=== PATIENT | male | born 1970 | race Caucasian/White ===

== ENCOUNTER 2016-11-26 18:18 | Emergency (ER) | payer OTHER ==
[~2016-11-26] VITALS: Ht 165.1 cm; Wt 63.6 kg
[2016-11-26 18:34] VITALS: Ht 165.1 cm; Wt 63.6 kg
[2016-11-26] MEDS ORDERED: DIPHTH/TET/ACEL PERTUSS (ADULT) 0.5 ML VIAL IM* ONE (19:00)
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
[2016-11-26] MEDS ORDERED: LIDOCAINE 1% (MDV) 20 ML INJ SC ONE (19:30)
[2016-11-26] MEDS ORDERED: LIDOCAINE 1%/EPI 30 ML INJ INJ STA (19:46)
[2016-11-26] MEDS ORDERED: LIDOCAINE 2%/EPI MPF (SDV) 20 ML VIAL INJ STA (19:49)
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
[2016-11-26 20:22] VITALS: BP 150/95; PULSE 115; RESP 26; TEMP 99.4
== END 2016-11-26 20:25 ==
LOC: E/R 18:18
DX: S01.81XA Laceration without foreign body of other part of head, initial encounter (principal); R40.2252 Coma scale, best verbal response, oriented, at arrival to emergency department; S01.01XA Laceration without foreign body of scalp, initial encounter; R40.2142 Coma scale, eyes open, spontaneous, at arrival to emergency department; R40.2362 Coma scale, best motor response, obeys commands, at arrival to emergency department; Y08.89XA Assault by other specified means, initial encounter; Z23 Encounter for immunization
CPT/HCPCS: 70450; 70486; 90471; 90715